=== PATIENT | male | born 1980 | race Caucasian/White ===

== ENCOUNTER 2019-01-18 00:04 | Emergency (ER) | payer SELFPAY ==
[~2019-01-18] VITALS: Ht 167.6 cm; Wt 92.0 kg
[2019-01-18 00:41] LABS: HEMATOCRIT 45.2 % (39.0-50.0); HEMOGLOBIN 13.9 g/dl (14.0-18.0); IMMATURE GRANULOCYTES 4.8 % (0.0-5.0); MEAN CELL VOLUME 105.4 fL CALC (80.0-100.0); MEAN CORPUSCULAR HGB 32.4 pG CALC (26.0-32.0); MEAN CORPUSCULAR HGB CONC 30.8 g/L CALC (32.0-36.0); NEUT# 5.75 thou/uL (1.82-7.42); RED BLOOD COUNT 4.29 mill/uL (4.70-6.10); RED CELL DISTRI WIDTH 13.4 % (11.5-15.5)
[2019-01-18 00:44] LABS: URINE BILIRUBIN - DIPSTICK NEGATIVE (NEGATIVE); URINE BLOOD DIPSTICK NEGATIVE (NEGATIVE); URINE COLOR YELLOW; URINE GLUCOSE - DIPSTICK NEGATIVE (NEGATIVE); URINE KETONE NEGATIVE (NEGATIVE); URINE LEUK ESTERASE NEGATIVE (Negative); URINE NITRITE - DIPSTICK NEGATIVE (Negative); URINE PROTEIN - DIPSTICK NEGATIVE (NEG-TRACE); URINE SPECIFIC GRAVITY <=1.005; URINE UROBILINOGEN - DIPSTICK 0.2 E.U./dL (0.2)
[2019-01-18 00:46] LABS: URINE CLARITY CLEAR
[2019-01-18 00:47] LABS: COCAINE NEGATIVE (NEGATIVE); METHADONE NEGATIVE (NEGATIVE); TETRAHYDROCANNABIONOL NEGATIVE (NEGATIVE)
[2019-01-18 00:48] LABS: BARBITURATES NEGATIVE (NEGATIVE); OXCYCODONE NEGATIVE (NEGATIVE); TRICYLIC ANTIDEPRESSANTS NEGATIVE (NEGATIVE)
[2019-01-18 01:02] LABS: ETHYL ALCOHOL 390 mg/dl (0-30)
[2019-01-18 01:17] LABS: MYOGLOBIN 676 ng/mL (0 - 121)
[2019-01-18 01:29] LABS: ALBUMIN 3.5 g/dL (3.2-5.0); ALKALINE PHOSPHATASE 59 u/l (38-126); ANION GAP 24 (6-22 (CALC)); BILIRUBIN, TOTAL 0.5 mg/dL (0.0-1.4); BUN 11 mg/dL (9-20); BUN/CREATININE RATIO 8 (12-20 (CALC)); CARBON DIOXIDE 15 mmol/l (22-30); CHLORIDE 107 mmol/l (95-108); CREATININE 1.4 mg/dL (0.7-1.3); GFR 56 ML/MIN (>=60 (CALC)); GFR FOR AFR.AMER. > 60 ML/MIN (>=60 (CALC)); SGOT/AST 98 u/l (17-59); SODIUM 142 mmol/l (137-146); TOTAL PROTEIN 6.5 g/dL (6.3-8.2)
[2019-01-18 02:00] VITALS: BP 125/74
== END 2019-01-18 02:03 | disposition short-term general hospital (02) | DRG 297 ==
LOC: ED 00:04
PROVIDERS: Emergency Medicine
PROC: 0T9B70Z Drainage of Bladder with Drainage Device, Via Natural or Artificial Opening (ICD-10-PCS; principal; 2019-01-18)
PROC: 0BH17EZ Insertion of Endotracheal Airway into Trachea, Via Natural or Artificial Opening (ICD-10-PCS; 2019-01-18)
PROC: 5A1935Z Respiratory Ventilation, Less than 24 Consecutive Hours (ICD-10-PCS; 2019-01-18)
PROC: 5A12012 Performance of Cardiac Output, Single, Manual (ICD-10-PCS; 2019-01-18)
DX: I46.9 Cardiac arrest, cause unspecified (principal); E87.2 Acidosis; T17.918A Gastric contents in respiratory tract, part unspecified causing other injury, initial encounter; G51.39 Clonic hemifacial spasm, unspecified; R60.9 Edema, unspecified

== ENCOUNTER 2023-10-10 03:46 | Emergency (ER) | payer BC ==
[~2023-10-10] VITALS: Ht 162.6 cm; Wt 104.0 kg
[2023-10-10 03:52] VITALS: BP 154/91
[2023-10-10] MEDS ORDERED: methylPREDNISolone SODIUM SUCC 125 MG/2 ML SDV IV STA (03:56)
[2023-10-10] MEDS ORDERED: FAMOTIDINE 10MG/ML 2ML SDV IV STA (03:56)
[2023-10-10] MEDS ORDERED: DiphenhydrAMINE HCL 50 MG/ML SDV IV STA (03:56)
[2023-10-10 04:01] VITALS: BP 140/87
[2023-10-10 04:31] VITALS: BP 119/76
[2023-10-10] MEDS ORDERED: PREDNISONE50 MG PO (04:37)
[2023-10-10] MEDS ORDERED: predniSONE 20 MG/TAB PO ONE (04:40)
[2023-10-10 04:44] VITALS: BP 119/76
== END 2023-10-10 04:50 | disposition home or self-care (01) | DRG 918 ==
LOC: ED 03:46
DX: T63.461A Toxic effect of venom of wasps, accidental (unintentional), initial encounter (principal); Y92.71 Barn as the place of occurrence of the external cause; Z72.0 Tobacco use